=== PATIENT | female | born 1990 | race Caucasian/White ===

== ENCOUNTER 2018-01-09 01:03 | Emergency (ER) | payer OTHER ==
[2018-01-09] MEDS ORDERED: methylPREDNISolone Sod Succ/PF 125 MG/2 ML VIAL ONE (01:29)
[2018-01-09] MEDS ORDERED: diphenhydrAMINE 50 MG/ML VIAL ONE (01:29)
[2018-01-09] MEDS ORDERED: Water For Inject, Bacteriostat 30 ML ONE (01:29)
[2018-01-09] MEDS ORDERED: Famotidine 20 MG TAB ONE (01:32)
== END 2018-01-09 03:56 | disposition home or self-care (01) ==
LOC: ERS 01:03
DX: T78.40XA Allergy, unspecified, initial encounter (principal)
CPT/HCPCS: 96361; 96374; 96375; J1200; J2930